=== PATIENT | female | born 1985 | race Two or more races ===

== ENCOUNTER 2022-09-26 11:49 | Emergency (ER) | payer MEDICAID ==
[~2022-09-26] VITALS: Ht 157.5 cm; Wt 68.0 kg
--- NOTE | 2022-09-26 11:50 | NUR ---
BIB MOTHER C/O DIZZINESS, +FOREHEAD LACERATION S/P HITTING CORNER OF THE DOOR, UNABLE TO RECALL IF UTD W/ TDAP. PT IS [id number]&OX4, -LOC. VITALS ARE WITHIN NORMAL LIMITS.
[2022-09-26] MEDS ORDERED: ACETAMINOPHEN 325 MG TABLET ONE (11:58)
[2022-09-26] MEDS ORDERED: TDAP [DIPH/PERTUSSIS/TET] 0.5 ML VIAL IM ONE ×2 (11:58→12:00)
[2022-09-26] MEDS ORDERED: LIDOCAINE 1% INJ 50 ML MDV IJ ONE (12:00)
[2022-09-26] MEDS ORDERED: ACETAMINOPHEN 325 MG TABLET PO ONE (12:00)
[2022-09-26] MEDS ORDERED: BACI/NEOM/POLY B OINT PKT 1 UDPKT PACKET TP ONE (12:00)
[2022-09-26 13:33] VITALS: BP 123/81
[2022-09-26] MEDS ORDERED: IBUP-1955 PO (15:39)
== END 2022-09-26 15:46 | disposition home or self-care (01) ==
LOC: ER 11:50
DX: S01.81XA Laceration without foreign body of other part of head, initial encounter (principal); W20.8XXA Other cause of strike by thrown, projected or falling object, initial encounter; Y93.89 Activity, other specified; Y92.89 Other specified places as the place of occurrence of the external cause; Y99.8 Other external cause status
CPT/HCPCS: 99283; 12013; 90471; 90715; A6403